=== PATIENT | female | born 1960 | race Caucasian/White ===

== ENCOUNTER → 2016-11-29 | Outpatient (CLI) | payer BC ==
[~2016-11-29] MED LIST: ALBU18HF2 INH; BUSP5TAB3 PO; FEXO1TAB11 PO; FLUO-138 PO; FLUT16SP EA NOSTRIL; HYDR12.54 PO; IBUP-1546 PO; METF500T4 PO; METH750T3 PO; PRAV40TA3 PO; PREG150C PO; RANI150T7 PO
== END ==
LOC: WC.BC 10:59
DX: Z12.31 Encounter for screening mammogram for malignant neoplasm of breast (principal)
CPT/HCPCS: 77063; G0202